=== PATIENT | female | born 1950 | race Caucasian/White ===

== ENCOUNTER → 2023-04-21 09:36 | Outpatient (REF) | payer MEDICARE, OTHER, SELFPAY ==
[2023-04-21 10:52] LABS: Albumin 3.7 g/dl (3.5-5.0); Blood Urea Nitrogen 22 mg/dl (7-17); Calcium 9.3 mg/dl (8.4-10.2); Carbon Dioxide 31 mmol/L (22-30); Chloride 84 mmol/L (98-107); Glucose 145 mg/dl (70-99); Phosphorus 4.5 mg/dl (2.5-4.5); Sodium 126 mmol/L (135-145); eGFR 43.42
== END ==
LOC: REG 09:36
PROVIDERS: ATTENDING PHYSICIAN Internal Medicine
DX: R80.9 Proteinuria, unspecified (principal); I10 Essential (primary) hypertension; E87.1 Hypo-osmolality and hyponatremia
CPT/HCPCS: 36415; 80069

== ENCOUNTER → 2023-04-28 16:41 | Outpatient (REF) | payer MEDICARE, OTHER, SELFPAY ==
[2023-04-28 17:14] LABS: Urine Albumin Trace (Neg - Trace); Urine Bilirubin Negative (Negative); Urine Character Clear (Clear); Urine Color Yellow; Urine Glucose Negative (Negative); Urine Ketone Negative (Negative); Urine Leukocyte Negative (Negative); Urine Nitrite Negative (Negative); Urine Occult Blood 1+ (Negative); Urine Urobilinogen Negative (Neg - 1+)
[2023-04-28 17:28] LABS: Urine Squamous Cell 0-2 /LPF (Few)
[2023-04-28 17:29] LABS: Urine Bacteria Few (Negative); Urine White Cell 0-2 /HPF (0-5)
== END ==
LOC: REG 16:41
PROVIDERS: ATTENDING PHYSICIAN Specialist
DX: R31.21 Asymptomatic microscopic hematuria (principal)
CPT/HCPCS: 81003; 81015

== ENCOUNTER → 2023-05-26 08:04 | Outpatient (REF) | payer MEDICARE, OTHER, SELFPAY ==
[2023-05-26 09:15] LABS: % Basophils 1.8 % (0-2); % Eosinophils 3.5 % (0-6); % Immature Granulocytes 0.9 % (0-0.5); % Monocytes 12.9 % (1.7-9.3); % Neutrophils 61.9 % (42.2-75.2); Absolute Basophils 0.1 10^3/uL (0-0.2); Absolute Eosinophils 0.2 10^3/uL (0-0.7); Absolute Immature Granulocytes 0.1 10^3/uL (0-0.05); Absolute Lymphocytes 1.1 10^3/uL (1.2-3.4); Absolute Monocytes 0.7 10^3/uL (0.1-0.6); Absolute Neutrophils 3.5 10^3/uL (1.4-6.5); Hematocrit 35.3 % (37.0-47.0); Hemoglobin 12.2 g/dL (12.0-16.0); Mean Corp Hgb Conc. 34.6 g/dL (33.0-37.0); Mean Corpuscular Hgb 32.6 pg (27.0-31.0); Mean Corpuscular Volume 94.4 fL (81.0-99.0); Nucleated Red Blood Cells % 0 %; Platelet Count 352 10^3/uL (130-400); Red Blood Cell Count 3.74 10^6/uL (4.20-5.40); Red Cell Dist. Width 12.1 % (11.5-14.5); White Blood Cell Count 5.6 10^3/uL (4.8-10.8)
[2023-05-26 09:46] LABS: ALT (SGPT) 21 U/L (0-35); AST (SGOT) 34 U/L (14-36); Albumin 3.9 g/dl (3.5-5.0); Alkaline Phosphatase 71 U/L (38-126); Blood Urea Nitrogen 12 mg/dl (7-17); Calcium 9.7 mg/dl (8.4-10.2); Carbon Dioxide 31 mmol/L (22-30); Chloride 91 mmol/L (98-107); Glucose 94 mg/dl (70-99); Potassium 4.1 mmol/L (3.5-5.1); Sodium 131 mmol/L (135-145); Total Bilirubin 0.9 mg/dl (0.2-1.3); Total Cholesterol 227 mg/dl (50-199); Total Protein 6.4 g/dl (6.3-8.2); Triglyceride 70 mg/dl (10-149); Very Low Density Lipoprotein 14 mg/dl (0-30); eGFR 53.06
[2023-05-26 09:54] LABS: HDL Cholesterol 135 mg/dl; LDL Cholesterol, Calculated 78 mg/dl
[2023-05-26 10:05] LABS: Free T4 1.52 ng/dl (0.78-2.19)
[2023-05-26 10:19] LABS: TSH 5.53 uIU/ml (0.47-4.68)
[2023-05-26 10:56] LABS: Folate > 20.0 ng/ml (2.76-20); Vitamin B12 799 pg/ml (239-931)
[2023-05-26 11:19] LABS: Glycohemoglobin (HgbA1c) 5.2 % (4.0-5.6)
[2023-05-29 17:08] LABS: Vitamin B1, Plasma 8 nmol/L (4-15)
== END ==
LOC: REG 08:04
PROVIDERS: ATTENDING PHYSICIAN Family Medicine
DX: I10 Essential (primary) hypertension (principal); E87.1 Hypo-osmolality and hyponatremia; R79.89 Other specified abnormal findings of blood chemistry; R35.0 Frequency of micturition; R63.1 Polydipsia; E53.8 Deficiency of other specified B group vitamins; D75.89 Other specified diseases of blood and blood-forming organs; F10.10 Alcohol abuse, uncomplicated
CPT/HCPCS: 36415; 80053; 80061; 82607; 82746; 83036; 84425; 84439; 84443; 85025

== ENCOUNTER → 2023-06-21 14:45 | Outpatient (REF) | payer MEDICARE, OTHER, SELFPAY | LOC: WDC 14:45 | PROVIDERS: ATTENDING PHYSICIAN Family Medicine | DX: Z12.31 Encounter for screening mammogram for malignant neoplasm of breast (principal) | CPT/HCPCS: 77063; 77067 ==

== ENCOUNTER → 2023-07-27 15:34 | Outpatient (REF) | payer MEDICARE, OTHER, SELFPAY ==
[2023-07-27 17:03] LABS: Blood Urea Nitrogen 14 mg/dl (7-17); Calcium 9.5 mg/dl (8.4-10.2); Carbon Dioxide 26 mmol/L (22-30); Chloride 95 mmol/L (98-107); Glucose 104 mg/dl (70-99); Potassium 4.3 mmol/L (3.5-5.1); Sodium 129 mmol/L (135-145); eGFR > 60.00
[2023-07-27 17:20] LABS: Free T3 2.92 pg/ml (2.77-5.27); Free T4 1.19 ng/dl (0.78-2.19)
[2023-07-27 17:34] LABS: TSH 5.24 uIU/ml (0.47-4.68)
== END ==
LOC: REG 15:34
PROVIDERS: ATTENDING PHYSICIAN Family Medicine
DX: I10 Essential (primary) hypertension (principal); E87.1 Hypo-osmolality and hyponatremia; R79.89 Other specified abnormal findings of blood chemistry
CPT/HCPCS: 36415; 80048; 84439; 84443; 84481

== ENCOUNTER → 2024-01-04 15:10 | Outpatient (REF) | payer MEDICARE, OTHER, SELFPAY ==
[2024-01-04 15:59] LABS: % Basophils 0.4 % (0-2); % Eosinophils 0.2 % (0-6); % Immature Granulocytes 0.5 % (0-0.5); % Lymphocytes 11.1 % (20.5-51.1); % Monocytes 4.6 % (1.7-9.3); % Neutrophils 83.2 % (42.2-75.2); Absolute Basophils 0.1 10^3/uL (0-0.2); Absolute Immature Granulocytes 0.1 10^3/uL (0-0.05); Absolute Lymphocytes 1.3 10^3/uL (1.2-3.4); Absolute Monocytes 0.5 10^3/uL (0.1-0.6); Absolute Neutrophils 9.8 10^3/uL (1.4-6.5); Hematocrit 34.8 % (37.0-47.0); Hemoglobin 11.9 g/dL (12.0-16.0); Mean Corp Hgb Conc. 34.2 g/dL (33.0-37.0); Mean Corpuscular Hgb 30.5 pg (27.0-31.0); Mean Corpuscular Volume 89.2 fL (81.0-99.0); Mean Platelet Volume 10.2 fL (7.4-10.4); Nucleated Red Blood Cells % 0 %; Platelet Count 463 10^3/uL (130-400); Red Cell Dist. Width 13.2 % (11.5-14.5); White Blood Cell Count 11.8 10^3/uL (4.8-10.8)
[2024-01-04 16:29] LABS: ALT (SGPT) 17 U/L (0-35); AST (SGOT) 21 U/L (14-36); Albumin 4.5 g/dl (3.5-5.0); Alkaline Phosphatase 67 U/L (38-126); Blood Urea Nitrogen 16 mg/dl (7-17); Calcium 9.6 mg/dl (8.4-10.2); Carbon Dioxide 31 mmol/L (22-30); Chloride 93 mmol/L (98-107); Glucose 112 mg/dl (70-99); Sodium 135 mmol/L (135-145); Total Bilirubin 0.5 mg/dl (0.2-1.3); Total Protein 6.9 g/dl (6.3-8.2); eGFR > 60.00
[2024-01-04 17:34] LABS: Folate > 20.0 ng/ml (2.76-20); Vitamin B12 725 pg/ml (239-931)
== END ==
LOC: REG 15:10
PROVIDERS: ATTENDING PHYSICIAN Nurse Practitioner Adult Health; FAMILY PHYSICIAN Family Medicine
DX: E87.1 Hypo-osmolality and hyponatremia (principal); E53.8 Deficiency of other specified B group vitamins; I10 Essential (primary) hypertension; E87.6 Hypokalemia; F10.10 Alcohol abuse, uncomplicated; Z51.81 Encounter for therapeutic drug level monitoring; Z79.899 Other long term (current) drug therapy; Z13.29 Encounter for screening for other suspected endocrine disorder
CPT/HCPCS: 36415; 80053; 82607; 82746; 84207; 85025

== ENCOUNTER → 2024-01-29 10:10 | Outpatient (REF) | payer MEDICARE, OTHER, SELFPAY ==
[2024-01-29 11:01] LABS: % Basophils 0.4 % (0-2); % Eosinophils 0.4 % (0-6); % Immature Granulocytes 0.4 % (0-0.5); % Lymphocytes 10.1 % (20.5-51.1); % Monocytes 7.4 % (1.7-9.3); % Neutrophils 81.3 % (42.2-75.2); Absolute Basophils 0.1 10^3/uL (0-0.2); Absolute Eosinophils 0.1 10^3/uL (0-0.7); Absolute Immature Granulocytes 0.1 10^3/uL (0-0.05); Absolute Lymphocytes 1.4 10^3/uL (1.2-3.4); Absolute Neutrophils 11.5 10^3/uL (1.4-6.5); Hemoglobin 12.3 g/dL (12.0-16.0); Mean Corp Hgb Conc. 33.2 g/dL (33.0-37.0); Mean Corpuscular Hgb 29.4 pg (27.0-31.0); Mean Corpuscular Volume 88.3 fL (81.0-99.0); Mean Platelet Volume 10.2 fL (7.4-10.4); Nucleated Red Blood Cells % 0 %; Platelet Count 324 10^3/uL (130-400); Red Blood Cell Count 4.19 10^6/uL (4.20-5.40); Red Cell Dist. Width 12.4 % (11.5-14.5); White Blood Cell Count 14.1 10^3/uL (4.8-10.8)
[2024-01-29 11:40] LABS: Blood Urea Nitrogen 15 mg/dl (7-17); Calcium 9.8 mg/dl (8.4-10.2); Carbon Dioxide 32 mmol/L (22-30); Chloride 93 mmol/L (98-107); Glucose 94 mg/dl (70-99); Potassium 3.4 mmol/L (3.5-5.1); Sodium 139 mmol/L (135-145); eGFR > 60.00
== END ==
LOC: REG 10:10
PROVIDERS: ATTENDING PHYSICIAN Nurse Practitioner Adult Health; FAMILY PHYSICIAN Family Medicine
DX: I10 Essential (primary) hypertension (principal); D72.9 Disorder of white blood cells, unspecified; D72.829 Elevated white blood cell count, unspecified
CPT/HCPCS: 36415; 80048; 85025

== ENCOUNTER → 2024-02-01 14:33 | Outpatient (REF) | payer MEDICARE, OTHER, SELFPAY | LOC: RAD 14:33 | PROVIDERS: ATTENDING PHYSICIAN Family Medicine | DX: D72.828 Other elevated white blood cell count (principal) | CPT/HCPCS: 71046 ==

== ENCOUNTER → 2024-02-05 11:11 | Outpatient (REF) | payer MEDICARE, OTHER, SELFPAY | LOC: REG 11:11 | PROVIDERS: ATTENDING PHYSICIAN Family Medicine | DX: D72.828 Other elevated white blood cell count (principal) | CPT/HCPCS: 87324; 87449; 89055 ==

== ENCOUNTER → 2024-02-12 10:25 | Outpatient (REF) | payer MEDICARE, OTHER, SELFPAY ==
[2024-02-12 12:00] LABS: % Basophils 0.7 % (0-2); % Eosinophils 0.6 % (0-6); % Immature Granulocytes 0.9 % (0-0.5); % Lymphocytes 16.6 % (20.5-51.1); % Monocytes 7.6 % (1.7-9.3); % Neutrophils 73.6 % (42.2-75.2); Absolute Basophils 0.1 10^3/uL (0-0.2); Absolute Eosinophils 0.1 10^3/uL (0-0.7); Absolute Immature Granulocytes 0.1 10^3/uL (0-0.05); Absolute Lymphocytes 1.9 10^3/uL (1.2-3.4); Absolute Monocytes 0.9 10^3/uL (0.1-0.6); Absolute Neutrophils 8.4 10^3/uL (1.4-6.5); Hematocrit 40.1 % (37.0-47.0); Hemoglobin 12.7 g/dL (12.0-16.0); Mean Corp Hgb Conc. 31.7 g/dL (33.0-37.0); Mean Corpuscular Hgb 29.3 pg (27.0-31.0); Mean Corpuscular Volume 92.6 fL (81.0-99.0); Mean Platelet Volume 9.7 fL (7.4-10.4); Nucleated Red Blood Cells % 0 %; Platelet Count 455 10^3/uL (130-400); Red Blood Cell Count 4.33 10^6/uL (4.20-5.40); Red Cell Dist. Width 12.6 % (11.5-14.5); White Blood Cell Count 11.5 10^3/uL (4.8-10.8)
[2024-02-12 12:29] LABS: ALT (SGPT) 19 U/L (0-35); AST (SGOT) 22 U/L (14-36); Albumin 4.5 g/dl (3.5-5.0); Alkaline Phosphatase 69 U/L (38-126); Blood Urea Nitrogen 15 mg/dl (7-17); C-Reactive Protein < 5.00 mg/L (0.0-10.00); Calcium 9.5 mg/dl (8.4-10.2); Carbon Dioxide 29 mmol/L (22-30); Chloride 95 mmol/L (98-107); Glucose 92 mg/dl (70-99); Potassium 4.5 mmol/L (3.5-5.1); Sodium 135 mmol/L (135-145); Total Bilirubin 0.5 mg/dl (0.2-1.3); eGFR > 60.00
[2024-02-12 12:47] LABS: Erythrocyte Sed Rate 11 mm/hour (0-20)
== END ==
LOC: REG 10:25
PROVIDERS: ATTENDING PHYSICIAN Family Medicine
DX: D72.828 Other elevated white blood cell count (principal)
CPT/HCPCS: 36415; 80053; 85025; 85652; 86140

== ENCOUNTER → 2024-02-21 11:28 | Outpatient (REF) | payer MEDICARE, OTHER, SELFPAY ==
[2024-02-21 13:01] LABS: % Basophils 0.9 % (0-2); % Eosinophils 1.3 % (0-6); % Immature Granulocytes 0.7 % (0-0.5); % Lymphocytes 19.2 % (20.5-51.1); % Monocytes 9.4 % (1.7-9.3); % Neutrophils 68.5 % (42.2-75.2); Absolute Basophils 0.1 10^3/uL (0-0.2); Absolute Eosinophils 0.1 10^3/uL (0-0.7); Absolute Immature Granulocytes 0.1 10^3/uL (0-0.05); Absolute Lymphocytes 1.6 10^3/uL (1.2-3.4); Absolute Monocytes 0.8 10^3/uL (0.1-0.6); Absolute Neutrophils 5.8 10^3/uL (1.4-6.5); Hematocrit 36.6 % (37.0-47.0); Hemoglobin 12.4 g/dL (12.0-16.0); Mean Corp Hgb Conc. 33.9 g/dL (33.0-37.0); Mean Corpuscular Hgb 30.2 pg (27.0-31.0); Mean Corpuscular Volume 89.1 fL (81.0-99.0); Nucleated Red Blood Cells % 0 %; Platelet Count 385 10^3/uL (130-400); Red Blood Cell Count 4.11 10^6/uL (4.20-5.40); Red Cell Dist. Width 12.9 % (11.5-14.5); White Blood Cell Count 8.5 10^3/uL (4.8-10.8)
== END ==
LOC: REG 11:28
PROVIDERS: ATTENDING PHYSICIAN Family Medicine
DX: D72.829 Elevated white blood cell count, unspecified (principal)
CPT/HCPCS: 36415; 85025

== ENCOUNTER → 2024-05-10 08:09 | Outpatient (REF) | payer MEDICARE, OTHER, SELFPAY ==
[2024-05-10 09:07] LABS: % Eosinophils 2.7 % (0-6); % Immature Granulocytes 0.8 % (0-0.5); % Lymphocytes 21.3 % (20.5-51.1); % Monocytes 7.1 % (1.7-9.3); % Neutrophils 67.1 % (42.2-75.2); Absolute Basophils 0.1 10^3/uL (0-0.2); Absolute Eosinophils 0.2 10^3/uL (0-0.7); Absolute Immature Granulocytes 0.1 10^3/uL (0-0.05); Absolute Lymphocytes 1.7 10^3/uL (1.2-3.4); Absolute Monocytes 0.6 10^3/uL (0.1-0.6); Absolute Neutrophils 5.3 10^3/uL (1.4-6.5); Hematocrit 37.9 % (37.0-47.0); Hemoglobin 12.3 g/dL (12.0-16.0); Mean Corp Hgb Conc. 32.5 g/dL (33.0-37.0); Mean Corpuscular Hgb 29.1 pg (27.0-31.0); Mean Corpuscular Volume 89.6 fL (81.0-99.0); Mean Platelet Volume 9.6 fL (7.4-10.4); Nucleated Red Blood Cells % 0 %; Platelet Count 380 10^3/uL (130-400); Red Blood Cell Count 4.23 10^6/uL (4.20-5.40); Red Cell Dist. Width 12.8 % (11.5-14.5); White Blood Cell Count 7.9 10^3/uL (4.8-10.8)
[2024-05-10 09:44] LABS: ALT (SGPT) 17 U/L (0-35); AST (SGOT) 21 U/L (14-36); Albumin 4.5 g/dl (3.5-5.0); Alkaline Phosphatase 63 U/L (38-126); Blood Urea Nitrogen 10 mg/dl (7-17); Calcium 9.3 mg/dl (8.4-10.2); Carbon Dioxide 31 mmol/L (22-30); Chloride 96 mmol/L (98-107); Glucose 98 mg/dl (70-99); Potassium 3.7 mmol/L (3.5-5.1); Sodium 135 mmol/L (135-145); Total Cholesterol 266 mg/dl (50-199); Total Protein 6.8 g/dl (6.3-8.2); Triglyceride 79 mg/dl (10-149); Very Low Density Lipoprotein 15 mg/dl (0-30); eGFR 59.12
[2024-05-10 09:54] LABS: HDL Cholesterol 119 mg/dl; LDL Cholesterol, Calculated 132 mg/dl
[2024-05-10 10:12] LABS: TSH Reflex To Free T4 4.83 uIU/ml (0.47-4.68)
[2024-05-10 10:31] LABS: Vitamin B12 501 pg/ml (239-931)
== END ==
LOC: REG 08:09
PROVIDERS: ATTENDING PHYSICIAN Family Medicine
DX: D72.828 Other elevated white blood cell count (principal); I10 Essential (primary) hypertension; E03.8 Other specified hypothyroidism; E53.1 Pyridoxine deficiency; E78.00 Pure hypercholesterolemia, unspecified
CPT/HCPCS: 36415; 80053; 80061; 82607; 84207; 84439; 84443; 85025

== ENCOUNTER 2024-06-09 20:06 | Inpatient (IN) | payer MEDICARE, OTHER, SELFPAY ==
[2024-06-09] VITALS (12 sets, daily range): BP systolic 111–181; BP diastolic 72–129; PULSE 90–100; BMI 21.0; BMI 22.4
[2024-06-09 15:57] LABS: % Basophils 0.8 % (0-2); % Eosinophils 0.6 % (0-6); % Immature Granulocytes 0.5 % (0-0.5); % Lymphocytes 12.5 % (20.5-51.1); % Monocytes 4.8 % (1.7-9.3); % Neutrophils 80.8 % (42.2-75.2); Absolute Basophils 0.1 10^3/uL (0-0.2); Absolute Eosinophils 0.1 10^3/uL (0-0.7); Absolute Immature Granulocytes 0.1 10^3/uL (0-0.05); Absolute Lymphocytes 1.6 10^3/uL (1.2-3.4); Absolute Monocytes 0.6 10^3/uL (0.1-0.6); Absolute Neutrophils 10.6 10^3/uL (1.4-6.5); Hematocrit 29.9 % (37.0-47.0); Hemoglobin 10.2 g/dL (12.0-16.0); Mean Corp Hgb Conc. 34.1 g/dL (33.0-37.0); Mean Corpuscular Hgb 29.7 pg (27.0-31.0); Mean Corpuscular Volume 87.2 fL (81.0-99.0); Mean Platelet Volume 9.5 fL (7.4-10.4); Nucleated Red Blood Cells % 0 %; Platelet Count 400 10^3/uL (130-400); Red Blood Cell Count 3.43 10^6/uL (4.20-5.40); Red Cell Dist. Width 12.8 % (11.5-14.5); White Blood Cell Count 13.1 10^3/uL (4.8-10.8)
[2024-06-09 16:08] LABS: ALT (SGPT) 18 U/L (0-35); AST (SGOT) 23 U/L (14-36); Albumin 4.1 g/dl (3.5-5.0); Alkaline Phosphatase 58 U/L (38-126); Blood Urea Nitrogen 29 mg/dl (7-17); Calcium 9.1 mg/dl (8.4-10.2); Carbon Dioxide 30 mmol/L (22-30); Chloride 92 mmol/L (98-107); Estimated Creatinine Clearance 33 ml/min; Glucose 114 mg/dl (70-99); Potassium 3.5 mmol/L (3.5-5.1); Sodium 130 mmol/L (135-145); Total Bilirubin 0.5 mg/dl (0.2-1.3); Total Protein 6.1 g/dl (6.3-8.2)
[2024-06-09 16:20] LABS: Troponin I < 0.012 ng/ml
--- NOTE | 2024-06-09 16:41 | ED.GENMED ---
History of Present Illness
General
Chief Complaint: Fainting Sensation
Source: patient and family
Exam Limitations: none
Time Seen by Provider: 06/09/24 16:12
Nursing documentation reviewed up to this point in time: agreed with
History of Present Illness
History of Present Illness:
Patient is a 73-year-old female presents to the ER for evaluation. Patient apparently had a witnessed near syncopal episode by her son. She was walking around her house at 2:30 PM looking for paperwork when she reports she did not feel right. She
called for her son her son saw her and caught her. She did not fully pass out. Son reports patient was still talking to her.
She had no associated chest pain prior to episode.
She does mention that she has had several nosebleeds off and on for the past month. She is not on blood thinners other than aspirin.
Review of Systems
Review of Systems
Allergies reviewed?: Yes
All Other Systems: ROS reviewed and negative except as documented in HPI and ROS
Constitutional: Reports no symptoms; Denies fever, fatigue or chills
EENT: Reports other (Intermittent nosebleeds off and on for the past several weeks (last one today ) )
Respiratory: Reports no symptoms; Denies trouble breathing
Cardiac: Reports other (near syncope )
ABD/GI: Reports no symptoms; Denies abdominal pain, vomiting, diarrhea or black stools
: Reports no symptoms
Musculoskeletal: Reports no symptoms
Skin: Reports no symptoms
Psychiatric: Reports no symptoms
Phy Exam
General Physical Exam
General Presentation: no apparent distress
General age: appears stated age
General Skin: warm and dry
General Habitus: normal
General Mental: alert
General Hydration: appears well hydrated
Cardiovascular Exam
Cardiovascular Exam: regular rate/rhythm, no murmur and normal peripheral pulses
Pulmonary Exam
Pulmonary Exam: lungs clear and no respiratory distress
Neurological Exam
Neurological Exam: alert and oriented x3
Musculoskeletal Exam
Musculoskeletal Exam: full ROM
Skin Exam
Skin Exam: normal color and warm/dry
Psychiatric Exam
Psychiatric Exam: normal mood/affect
Course
Orders/Labs/Results
Orders:
Orders
06/09/24 Dinner
Regular
At Your Request: Limited, Clinical Registered Nurse Required
06/09/24 15:18
EKG [Electrocardiogram (*1)] Urgent
Reason for Study: Syncope
EKG- Treatment ONCE
06/09/24 15:34
Alcohol Urgent
Complete Blood Count/With Diff Urgent
Comprehensive Metabolic Panel Urgent
Ferritin Urgent
Comment: PRUDENCEON
Folate Urgent
Comment: PRUDENCEON
Free T4 Urgent
Iron Urgent
Comment: PRUDENCEON
Serum Osmolality Urgent
Comment: PRUDENCEON
TSH Reflex To Free T4 Urgent
Comment: ADDON
Total Iron Binding Urgent
Comment: ADDON
Troponin I Urgent
Vitamin B12 Urgent
Comment: PRUDENCEON
06/09/24 16:53
Orthostatic VS- Treatment ONCE
06/09/24 17:04
Osmolality, Random Urine Urgent
Date Specimen was Collected: 06/09/24
Time Specimen was Collected: 17:01
Comment: PRUDENCEON
UA Reflex to Culture [Urinalysis Reflex To Culture] Urgent
Date Specimen was Collected: 06/09/24
Time Specimen was Collected: 17:01
Urine Microscopic Reflex Cult Urgent
Urine Sodium Urgent
Date Specimen was Collected: 06/09/24
Time Specimen was Collected: 17:01
Comment: PRUDENCEON
06/09/24 17:57
Add On- LAB Urgent
Tests Added?: alcohol
06/09/24 17:58
0.9% Sodium Chloride 1000 ml [Nss] 1,000 ml IV BOLUS
06/09/24 18:32
Add On- LAB Urgent
Tests Added?: iron, ferritin, tibc, folate, b12, urine na, urine osmo, serum os
06/09/24 18:33
Add On- LAB Urgent
Tests Added?: tsh wiraulh freee t4 reflex
06/09/24 19:04
Labetalol HCl [Trandate] 10 mg IV NOW STA
Labetalol HCl [Trandate] 10 mg IV Q6HPRN PRN
06/09/24 19:09
CT Head W/o Iv Contrast Urgent
Comment:
Reason For Exam: h/a htn urgency nose bleed
06/09/24 19:25
Admit/Transfer Patient As Directed
Co-Sign Provider:
Level of Care: Inpatient admission
Assign to:: Telemetry
Physician / Group: keren carbone
Diagnosis: htn urgency, r nares epistaxis, donald/ckd3b, anemia
Reason for Telemetry: Arrhythmia
Date to Stop Telemetry: 06/12/24
Time to Stop Telemetry: 11:00
Reason for Hospitalization: htn urgency, r nares epistaxis, donald/ckd3b, anemia
Expected length of stay greater than two midnights?: Yes
ELOS- Estimated Length of Stay in days: 3
I certify the patient meets the requirements for IP care: Yes
06/09/24 19:26
Code Status As Directed
Resuscitation Status: Do not resuscitate
Reached after discussion with pt or family/Healthcare POA: Yes
Based on pt advanced directive or healthcare POA form: Yes
DNR Bracelet Application ONCE
06/09/24 19:30
PRN Pain Medication Management As Directed
May give lesser potent ordered pain med per pt: Yes
preference::
Protocol:: Medication orders for pain may be administered in a
manner that supports deferring to patient preference
when the pt is:
- Requesting an ordered lesser potent pain medication.
Least to most potent pain medications are defined
as: acetaminophen < NSAID < tramadol < opioids
(morphine, oxycodone, hydromorphone).
- Requesting a lesser dose of the same medication IF
ORDERED.
- Requesting a less intrusive route of administration
if both routes are prescribed by the provider (PO <
IV).
06/09/24 19:55
Acetaminophen [Tylenol] 650 mg PO NOW STA
06/09/24 21:49
Activity As Directed
Activity Level: With Assistance
Orthostatic Vital Signs As Directed
Orthostatic VS Frequency: Daily
Pneumatic Compression Sleeves As Directed
Type: Knee high
Precautions As Directed
Type of Precautions: Other
Comment: fall
Vital Signs As Directed
Frequency: Per unit guidelines
Ot Eval And Treat Routine
Pt Eval And Treat Routine
Activity Level: With Assistance
DX Deep Vein Thrombosis Video Routine
06/09/24 22:00
Amlodipine [Norvasc] 10 mg PO ONCE ONE
06/10/24 00:00
Acetaminophen [Tylenol] 650 mg PO Q4HPRN PRN
06/10/24 06:00
Complete Blood Count/With Diff IN AM
Comprehensive Metabolic Panel IN AM
06/10/24 08:00
Amlodipine [Norvasc] 10 mg PO DAILY
06/11/24 06:00
Complete Blood Count/With Diff IN AM
Comprehensive Metabolic Panel IN AM
06/12/24 11:00
DC Protocol for Telemetry ONCE
Abnormal Lab Results
06/09/24 06/09/24
15:34 17:04
WBC 13.1 H 10^3/uL
(4.8-10.8)
RBC 3.43 L 10^6/uL
(4.20-5.40)
Hgb 10.2 L g/dL
(12.0-16.0)
Hct 29.9 L %
(37.0-47.0)
Abs Immat Gran (auto) 0.1 H 10^3/uL
(0-0.05)
Absolute Neuts (auto) 10.6 H 10^3/uL
(1.4-6.5)
Neutrophils % 80.8 H %
(42.2-75.2)
Lymphocytes % 12.5 L %
(20.5-51.1)
Sodium 130 L mmol/L
(135-145)
Chloride 92 L mmol/L
(98-107)
BUN 29 H mg/dl
(7-17)
Creatinine 1.2 H mg/dL
(0.6-1.0)
Glucose 114 H mg/dl
(70-99)
TIBC 244 L ug/dl
(265-497)
Total Protein 6.1 L g/dl
(6.3-8.2)
TSH (Reflex) 5.71 H uIU/ml
(0.47-4.68)
Urine Ketones 1+ A
(Negative)
Ur Occult Blood Reflex 2+ A
(Negative)
Urine RBC 7-10 A /HPF
(0-2)
Urine Bacteria (Reflex) Few A
(Negative)
Urine Albumin (Reflex) 1+ A
(Neg - Trace)
06/09/24 15:34
06/09/24 15:34
Vital Signs
Initial and Last Documented VS:
Initial Vital Signs
Temp Pulse Resp BP Pulse Ox
97.5 F 100 18 131/93 98
06/09/24 15:20 06/09/24 15:20 06/09/24 15:20 06/09/24 15:20 06/09/24 15:20
Last Documented Vital Signs
Temp Pulse Resp BP Pulse Ox
97.6 F 85 18 124/72 98
06/09/24 23:00 06/09/24 23:00 06/09/24 23:00 06/09/24 23:00 06/09/24 23:00
MDM/Problems Addressed
Differential Diagnosis Includes:
not Limited to near syncope dehydration electrolyte abnormality
MDM/Problems Addressed:
Patient is a 73-year-old female who was walking and describes a near syncopal episode. She suddenly did not feel well and son caught her. She did not then fall the ground he does report she was talking but was out of it. She denies any chest pain
she did not feel like she was in a pass out but she did not feel well. She has intermittent nosebleeds for the past several weeks. She has not been seen by ENT. She denies any recent fever chills illness. Her white count is very minimally
elevated her hemoglobin is 10.2 it was 12.3 May 10. She denies any black or dark stools but has had nosebleeds with a be attributing to this anemia.
Her sodium is mildly low at 130. Her kidney function is minimally elevated.
Will give fluids. No acute findings on EKG negative cardiac troponin. Case discussed with Dr. Colón with patient's age and sudden episodes of near syncope would recommend monitoring.
Son reports patient is a former alcoholic she reports she has not had a drink since January alcohol was added onto labs.
Patient was admitted by the admitting hospitalist team CAT scan was ordered and negative
*Radiology
Radiology exam reviewed: radiology read reviewed
*Pulse Oximetry
Patient hypoxic: no
*EKG
Interpretation: normal
Heart Rate: 91
Rate: normal
Rhythm: sinus
QRS Pattern: normal QRS
*Critical Care Note
Total Time (30-74mins, 75-104mins- exclusive of procedures): Not Applicable
ED Attending Note
-
Portions of this chart may have been created with voice recognition software.� Occasional wrong word or��sound alike� substitutions may have occurred due to the inherent limitations of voice recognition software.
Discharge Plan
Departure
Patient Disposition: Admit
Date of Disposition: 06/09/24
Time of Disposition: 18:10
Admit to: Telemetry
Admit to doctor: hospitalist
Presentation/result/management discussed w/ accepting MD/DO: Hospitalist
Patient with high blood pressure during this ER visit?: Yes
Condition: Fair
Covid-19: Not Applicable
Discharge Problem:
Near syncope, Acute hyponatremia, Acute dehydration
Interventions
Interventions:
*Risk Screen - Suicide Last Done: 06/09/24 15:57
*General Assessment Last Done: 06/09/24 15:57
*Neglect/Abuse Screening Last Done: 06/09/24 15:57
*ED- Fall Risk Assessment Last Done: 06/09/24 15:57
*ED COVID-19 Vaccine History Last Done: 06/09/24 15:57
*Nursing Disposition Last Done: 06/09/24 21:30
ED- Cardiac Assessment Last Done: 06/09/24 15:57
ED- Neurological Assessment Last Done: 06/09/24 15:57
Discharge Date and Time
Discharge Date/Time: 06/09/24 21:30
[2024-06-09 17:12] LABS: Urine Albumin 1+ (Neg - Trace); Urine Bilirubin Negative (Negative); Urine Character Clear (Clear); Urine Color Yellow; Urine Glucose Negative (Negative); Urine Ketone 1+ (Negative); Urine Leukocyte Negative (Negative); Urine Nitrite Negative (Negative); Urine Occult Blood 2+ (Negative); Urine Urobilinogen Negative (Neg - 1+)
[2024-06-09 17:28] LABS: Urine Bacteria Few (Negative); Urine White Cell 0-2 /HPF (0-5)
[2024-06-09] MEDS: NSS 1000 IV (18:07)
--- NOTE | 2024-06-09 18:24 | HPS.HSE ---
Family Physician
-
Family Physician: Oksana Kilgore MD
Chief Complaint
-
Right Neer's epistaxis, incomplete vasovagal episode secondary to epistaxis, frontal headache
History of Present Illness
73-year-old female with witnessed near syncopal episode by her son. The patient tells me she has been having nosebleeds over the past month and has had 7 over the past 2 weeks she was taking her finger and pressing on her nostril only tipping her
head back and then would start gagging on the blood. She would keep holding pressure on her nostril only till it eventually stopped. Today she states she was bleeding out of the right nares and was holding pressure tipping her head back started to
gag and felt like she was going to pass out when her son was there to catch her. She states she saw her PCP 1 month ago and had mention she only had 2 nosebleeds at that time. It was noted her blood pressure was elevated in the office and her
lisinopril was increased from 20 mg to 30 mg daily. The patient has short-term memory impairment likely secondary to prior alcohol abuse and family history of Alzheimer's. She does state she misses some medications even though they are put in
medication containers for a.m. and p.m. She is on aspirin 81 mg daily and has still been taking it despite having nosebleeds. She also complains of a frontal headache. She has a clot present in her right nares. She was counseled on how to pinch
her nose during a nosebleed with her son Jeancarlos present at bedside. It was also recommended that a family member organize her home medications she was advised also to hold aspirin during nosebleed episodes and to follow-up outpatient with ENT
She denies any prior chest pain or palpitations. She denies fever, chills, headache, chest pain, palpitations, cough, shortness of breath, abdominal pain, nausea, vomiting, diarrhea, urinary symptoms she does report several nosebleeds on and off
the past month she has past medical history of hypertension Dx February 2024, prior alcohol abuse 15 to 20 years 1 bottle of wine daily completed detox December 2023, memory impairment likely secondary to alcohol abuse/history of Alzheimer's
hyponatremia, CAD with cardiac stents 1997, wrist fracture repair 2004, CKD 3B, osteoporosis
Medical History
Past Medical History
Past Medical History: Reports Other
Additional Past Medical History:
CAD status post stent placement 1997
hypertension Dx February 2024
prior alcohol abuse 15 to 20 years 1 bottle of wine daily completed detox December 2023
memory impairment likely secondary to alcohol abuse/history of Alzheimer's
hyponatremia
CAD with cardiac stents 1997
wrist fracture repair 2004
CKD 3B
osteoporosis
Past Surgical History: Reports Other
Additional Past Surgical History:
Fractured wrist repair 2004
Cardiac cath with stents 1997
Tonsillectomy
Social History
Tobacco: Non-smoker
Alcohol: Former (1 bottle of white wine 15 to 20 years stopped January 2024)
Drug: None
Personal: Single
Living: Alone
Employment: Retired
Family History
Family History: Other (Mother history of Alzheimer's Father history alcohol abuse, COPD)
Allergies / Home Medications
Allergies reflects when Allergies were last updated in [facility].
Home Medications with original date entered in [facility]
Allergy/Medication List:
Allergies
Allergy/AdvReac Type Severity Reaction Status Date / Time
NKA - No Known Allergies Allergy Uncoded 07/13/07 09:18
Home Medications
alendronate 70 mg tablet 70 mg PO WE 06/09/24
aspirin 81 mg tablet,delayed release 81 mg PO DAILY 06/09/24
cholecalciferol (vitamin D3) 125 mcg (5,000 unit) tablet 125 mcg PO DAILY 06/09/24
cyanocobalamin (vitamin B-12) 100 mcg tablet 100 mcg PO DAILY 06/09/24
ezetimibe 10 mg tablet 10 mg PO HS 06/09/24
folic acid 1 mg tablet 1 mg PO DAILY 06/09/24
lisinopril 30 mg tablet 30 mg PO DAILY 06/09/24
loperamide 2 mg tablet 4 mg PO DAILYPRN PRN diarrhea 06/09/24
melatonin 3 mg tablet 6 mg PO HS 06/09/24
potassium chloride 10 mEq tablet,extended release 10 meq PO DAILY 06/09/24
thiamine HCl (vitamin B1) 100 mg tablet 100 mg PO DAILY 06/09/24
trazodone 50 mg tablet 75 mg PO HS 06/09/24
Review of Systems
-
History Source: Patient and Family (Son Jeancarlos at bedside)
A 12 point ROS was completed and negative except as noted: Yes
Constitutional: Denies Fever, Fatigue or Chills
EENT: Reports Other (Right nares epistaxis controlled); Denies Sore Throat
Respiratory: Denies Cough, Hemoptysis or Trouble Breathing
Cardiac: Denies Chest Pain, Diaphoresis, Palpitations or Syncope
Abdomen/GI: Denies Abdominal Pain, Nausea, Vomiting, Diarrhea, Constipated, Bloody Stools or Black Stools
: Denies Dysuria, Frequency, Flank Pain, Incontinence, Difficulty Voiding, Urgency or Bleeding
Musculoskeletal: Denies Joint Pain or Edema
Skin: Denies Itching or Rash
Neurological: Reports Dizzy (When having nosebleed started to feel dizzy and fall backwards but son caught her) and Headache (Frontal headache)
Endocrine: Reports No Symptoms
Hematologic/Lymphatic: Reports No Symptoms
Psych: Reports Calm
Physical Exam
Vital Signs
Vital Signs
Temp Pulse Resp BP Pulse Ox
97.5 F 97 19 153/129 92
06/09/24 15:20 06/09/24 18:03 06/09/24 18:03 06/09/24 18:03 06/09/24 18:03
Physical Exam
General: Comfortable and Conversant; No Pain, Fever or Chills
HEENT: NormoCephalic, Anicteric, Moist mucous membranes, PERRLA, Hilger Conjunctivae, No Ptosis and Other (Blood clot present right anterior nares no bleeding left side of nose)
Respiratory: Clear; No Wheezes, Rales or Rhonchi
Cardiac: S1/S2 and Regular Rhythm; No Murmur, Rub, Gallop or Peripheral Edema
Breast: Deferred by me
GI: Soft, Non Tender, Non Distended, Normal Bowel Sounds and No Hepatosplenomegaly
Genito-urinary: Deferred by me
Musculoskeletal: No Clubbing, No Cyanosis and No Edema
Skin: Warm and Dry; No Rash
Neuro: AO x 3 (But is forgetful short-term memory cannot recall some of history is starting to miss some of her medication she states), Nonfocal/grossly intact, Cranial Nerves Intact and No Sensory Deficits; No Slurred Speech, Facial Droop, Tremors
or Sedated
Psych: Calm
Laboratory Results
-
06/09/24 15:34
06/09/24 15:34
Laboratory Results
Total Bilirubin 0.5 mg/dl (0.2-1.3) 06/09/24 15:34
AST 23 U/L (14-36) 06/09/24 15:34
ALT 18 U/L (0-35) 06/09/24 15:34
Alkaline Phosphatase 58 U/L (38-126) 06/09/24 15:34
Troponin I < 0.012 ng/ml 06/09/24 15:34
Data Reviewed
-
Lab Data: Labs Reviewed by me
Impression/Plan
-
Impression/plan:
Admit to telemetry
#Hypertensive urgency
Headache, prior nosebleed today
BP 181/117
IV labetalol 10 mg now then IV labetalol 10 mg every 6 hours as needed SBP> 165 GIPSON>110
-Check CT head
-Will STOP lisinopril 30 mg due to mild JORGE
-Will START Norvasc 10 mg daily
#Right nares epistaxis likely due to hypertensive urgency
Ongoing x 1 month, 7 episodes past 2 weeks
Clotted blood right naris
-Hold aspirin 81 mg daily
-Patient counseled on how to pinch nose and not tip head back son was present during counseling
-Follow-up outpatient with ENT
#Anemia normocytic secondary to R Nares epistaxis
History of 1 month of epistaxis, 7 episodes in the past 2 weeks including today
Hgb 10.2 was 12.3 on 05/10/2024 2 g drop in 1 month
MCV 87.2
-Check iron panel, B12, folate
-Hold aspirin
-Continue folic acid and B12 supplement
# incomplete Vasovagal espisode due to epistaxis
-Patient went to fell but was caught by son and did not pass out
-Check orthostatic level in a.m.
-Check alcohol level, troponin<0.012
EKG: NSR 91 bpm, QTc [address] or T wave abnormality
#Acute leukocytosis of unclear etiology
-UA unremarkable
-No obvious source of infection
#JORGE on CKD 3B
Creat 1.2 baseline appears 0.9
-IV NSS 1 L given in ER
-Will continue IV NSS 60 cc/h x 1 additional liter
#Hyponatremia�mild with history of
NA 130
-Check TSH with free T4 reflex, urine NA, urine osmole, serum Osmo
#Memory impairment short-term likely due to prior alcohol abuse and family history Alzheimer's
Patient is oriented to name, place, son, president but not recent history or some of medical history
Patient is forgetting to take some of medication at home
Son Jeancarlos made aware family should take over sorting out medications and bottles for patient's
#History of alcohol abuse
Prior 1 bottle of white wine daily 15 to 20 years detoxed at [facility] in October then short inpatient physical rehab stay due to hyponatremia then [facility] for 30 days for alcohol abuse quit January 2024
-Per son did have 1 episode of drinking again in January 2024
-Will check alcohol level as patient lives alone
-Continue vitamin B12 100 mcg p.o. daily, folic acid 1 mg daily, thiamine 100 mg p.o. daily
#CAD s/p cardiac stents 1997
-Stop aspirin 81 mg daily, continue Zetia 10 mg at bedtime
#Insomnia
-Continue melatonin 6 mg at bedtime
Advised patient to stop trazodone 75 mg at bedtime as she has not been taking it due to running out
#Osteoporosis
Continue alendronate 70 mg p.o. Wednesdays, vitamin D3
DVT prophylaxis
SCDs
DNR per patient with son Jeancarlos at bedside
[2024-06-09 18:44] LABS: Osmolality Urine 357 mOsm/kg (300-900)
[2024-06-09 18:56] LABS: Iron 107 ug/dl (37-170)
[2024-06-09 18:58] LABS: Urine Sodium 33 mmol/L (30-90)
[2024-06-09 19:05] LABS: Percent Saturation 43 % (20-50); Total Iron Binding Capacity 244 ug/dl (265-497)
[2024-06-09 19:17] LABS: Osmolality Serum 283 mOsm/kg (275-300)
--- NOTE | 2024-06-09 19:32 | W.PN.UPDATE ---
Update Note
Progress Note Update
This is an addendum to the H&P written by Rossana Ferreira on 06/09/2024. Patient seen and examined independently with DATA ANALYSIS INTERN.
73-year-old past medical history of former alcohol use disorder, hyponatremia, hypertension, CKD 3B, Alzheimer's, history of CAD status post 10, presenting with right nostril nasal bleeding ongoing intermittently for the past month. Almost passed
out today due to inappropriate management of epistaxis.
Blood pressure 180s currently. Has a dried clot in the right nostril.
Labs show leukocytosis. Hemoglobin of 10.2. Labs show creatinine of 1.2. Sodium of 130.
Patient with hypertensive urgency secondary to epistaxis. Appears to have had a vasovagal episode today.
Epistaxis has resolved. Hold aspirin.
IV fluids were given, does not need further. IV labetalol for elevated blood pressure. Due to slight JORGE and inadequate blood pressure control, will switch lisinopril to amlodipine 10 mg. As needed labetalol.
[2024-06-09] MEDS: TRANDATE 10 MG IV (19:35)
[2024-06-09 19:37] LABS: TSH Reflex To Free T4 5.71 uIU/ml (0.47-4.68)
[2024-06-09 19:41] LABS: Ferritin 51.7 ng/ml (11.1-264.0)
[2024-06-09 20:04] LABS: Free T4 1.62 ng/dl (0.78-2.19)
[2024-06-09 20:12] LABS: Folate 16.5 ng/ml (2.76-20); Vitamin B12 510 pg/ml (239-931)
[2024-06-09] MEDS: TYLENOL 650 MG PO (20:42)
[2024-06-09] MEDS: NORVASC 10 MG PO (22:39)
[2024-06-09] MEDS: MELATONIN 5 MG PO (23:31)
[2024-06-10] VITALS (7 sets, daily range): BP systolic 110–162; BP diastolic 69–98; PULSE 86–94; O2SAT 99
[2024-06-10 06:37] LABS: % Immature Granulocytes 0.7 % (0-0.5); % Lymphocytes 29.9 % (20.5-51.1); % Monocytes 8.2 % (1.7-9.3); % Neutrophils 57.2 % (42.2-75.2); Absolute Basophils 0.1 10^3/uL (0-0.2); Absolute Eosinophils 0.2 10^3/uL (0-0.7); Absolute Immature Granulocytes 0.1 10^3/uL (0-0.05); Absolute Lymphocytes 2.1 10^3/uL (1.2-3.4); Absolute Monocytes 0.6 10^3/uL (0.1-0.6); Absolute Neutrophils 4.1 10^3/uL (1.4-6.5); Hematocrit 25.5 % (37.0-47.0); Hemoglobin 8.7 g/dL (12.0-16.0); Mean Corp Hgb Conc. 34.1 g/dL (33.0-37.0); Mean Corpuscular Hgb 29.7 pg (27.0-31.0); Mean Platelet Volume 9.8 fL (7.4-10.4); Nucleated Red Blood Cells % 0 %; Platelet Count 320 10^3/uL (130-400); Red Blood Cell Count 2.93 10^6/uL (4.20-5.40); Red Cell Dist. Width 12.9 % (11.5-14.5); White Blood Cell Count 7.1 10^3/uL (4.8-10.8)
[2024-06-10 07:19] LABS: ALT (SGPT) 14 U/L (0-35); AST (SGOT) 19 U/L (14-36); Alkaline Phosphatase 54 U/L (38-126); Blood Urea Nitrogen 21 mg/dl (7-17); Calcium 8.3 mg/dl (8.4-10.2); Carbon Dioxide 25 mmol/L (22-30); Chloride 102 mmol/L (98-107); Estimated Creatinine Clearance 43 ml/min; Glucose 100 mg/dl (70-99); Potassium 3.1 mmol/L (3.5-5.1); Sodium 134 mmol/L (135-145); Total Bilirubin 0.4 mg/dl (0.2-1.3); Total Protein 5.1 g/dl (6.3-8.2); eGFR > 60.00
[2024-06-10] MEDS: NORVASC 10 MG PO (09:13)
[2024-06-10] MEDS: KCL 40 MEQ PO (09:13)
--- NOTE | 2024-06-10 11:56 | W.PN.HOSP.TC ---
Today's Communication/Plan
-
trend bp
trend hgb
PT eval
Assessment / Plan
Assessment / Plan
#Hypertensive urgency
#Headache, prior nosebleed today
-CT head No evidence of acute intracranial abnormality.
-On Norvasc. BP improved
#Right nares epistaxis likely due to hypertensive urgency
Ongoing x 1 month, 7 episodes past 2 weeks
Clotted blood right naris
-Hold aspirin 81 mg daily-restart in am
-Patient counseled on how to pinch nose and not tip head back son was present during counseling
-Follow-up outpatient with ENT
#Anemia normocytic secondary to R Nares epistaxis
History of 1 month of epistaxis, 7 episodes in the past 2 weeks including today
Trend cbc
MCV 87.2
-Hold aspirin
-Continue folic acid and B12 supplement
# incomplete Vasovagal espisode due to epistaxis
-Patient went to fell but was caught by son and did not pass out
-Check orthostatic level-negative.
-Check alcohol level, troponin<0.012
#Acute leukocytosis of unclear etiology
-UA unremarkable
-No obvious source of infection
-resolved
#JORGE on CKD 3B
Creat 1.2 baseline appears 0.9
-IV NSS 1 L given in ER
-resolved. stop IVF.
#Hyponatremia likely 2/2 hypovolemia
-resolved
#Memory impairment short-term likely due to prior alcohol abuse and family history Alzheimer's
Patient is oriented to name, place, son, president but not recent history or some of medical history
Patient is forgetting to take some of medication at home
Son Jeancarlos made aware family should take over sorting out medications and bottles for patient's
#History of alcohol abuse
Prior 1 bottle of white wine daily 15 to 20 years detoxed at [facility] in October then short inpatient physical rehab stay due to hyponatremia then [facility] for 30 days for alcohol abuse quit January 2024
-Per son did have 1 episode of drinking again in January 2024
-Will check alcohol level as patient lives alone
-Continue vitamin B12 100 mcg p.o. daily, folic acid 1 mg daily, thiamine 100 mg p.o. daily
#CAD s/p cardiac stents 1997
-Stop aspirin 81 mg daily, continue Zetia 10 mg at bedtime
#Insomnia
-Continue melatonin 6 mg at bedtime
Advised patient to stop trazodone 75 mg at bedtime as she has not been taking it due to running out
#Osteoporosis
Continue alendronate 70 mg p.o. Wednesdays, vitamin D3
#Subclinical hypothyrodism
-repeat TFTs in 4-6 weeks
DVT prophylaxis
SCDs in setting of recent epistaxis
DNR per patient with son Jeancarlos at bedside
Anticipated Discharge: Within 24 hours
Subjective/Interval History
-
Date of Service: June 10, 2024
no further epistaxis
denies feeling lightheaded
eating breakfast
Objective Data
-
Labs:
Laboratory Results
06/10/24
05:06
WBC 7.1
Hgb 8.7 L
Hct 25.5 L
Plt Count 320
Sodium 134 L
Potassium 3.1 L
Chloride 102
Carbon Dioxide 25
BUN 21 H
Creatinine 0.9
Glucose 100 H
Calcium 8.3 L
Total Bilirubin 0.4
AST 19
ALT 14
Alkaline Phosphatase 54
Vital Signs:
Vital Signs
Temp Pulse Resp BP Pulse Ox
97.8 F 91 16 126/69 99
06/10/24 11:40 06/10/24 11:40 06/10/24 11:40 06/10/24 11:40 06/10/24 11:40
I&O
06/09/24 06/10/24 06/11/24
06:59 06:59 06:59
Intake Total 1200 / 1200
Balance 1200 / 1200
Physical Exam
-
General: Well Developed and No Apparent Distress
HEENT: Normocephalic, Atraumatic and Moist Mucous Membranes
Respiratory: Clear to Auscultation
Cardiac: Regular Rhythm and S1/S2; Negative Murmur, Rub or Gallop
GI: Soft, Nontender, Nondistended and Normal Bowel Sounds; Negative Organomegaly
Rectal: Deferred by Provider
Musculoskeletal: No Clubbing, No Cyanosis and No Edema
Skin: Negative Rash
Neuro: Awake, No Motor Deficits and Nonfocal/Grossly Intact
Psych: Calm
Data Reviewed
-
Total Time Spent with Patient (in minutes): 55
--- NOTE | 2024-06-10 16:52 | CM ---
Alert awake oriented patient who lives alone in a 1 story home with 4 steps to enter.She is independent in driving and in all activities of daily living.Offered VN she declined.
No adaptive devices
Never had VN/HX [facility]
Pharmacy [facility]
PCP Dr Kilgore
PLAN Home no needs
[2024-06-10 18:41] LABS: Hepatitis C Antibody Negative (Negative)
[2024-06-10] MEDS: ZETIA 10 MG PO (21:01)
[2024-06-10] MEDS: TYLENOL 650 MG PO (22:39)
[2024-06-10] MEDS: MELATONIN 5 MG PO (22:40)
[2024-06-11 03:00] VITALS: BP 140/69
[2024-06-11 05:45] LABS: % Basophils 1.4 % (0-2); % Eosinophils 5.4 % (0-6); % Immature Granulocytes 0.7 % (0-0.5); % Lymphocytes 28.6 % (20.5-51.1); % Monocytes 8.1 % (1.7-9.3); % Neutrophils 55.8 % (42.2-75.2); Absolute Basophils 0.1 10^3/uL (0-0.2); Absolute Eosinophils 0.3 10^3/uL (0-0.7); Absolute Lymphocytes 1.6 10^3/uL (1.2-3.4); Absolute Monocytes 0.5 10^3/uL (0.1-0.6); Absolute Neutrophils 3.1 10^3/uL (1.4-6.5); Hematocrit 25.7 % (37.0-47.0); Hemoglobin 8.7 g/dL (12.0-16.0); Mean Corp Hgb Conc. 33.9 g/dL (33.0-37.0); Mean Corpuscular Hgb 29.6 pg (27.0-31.0); Mean Corpuscular Volume 87.4 fL (81.0-99.0); Mean Platelet Volume 9.7 fL (7.4-10.4); Nucleated Red Blood Cells % 0 %; Platelet Count 321 10^3/uL (130-400); Red Blood Cell Count 2.94 10^6/uL (4.20-5.40); Red Cell Dist. Width 13.2 % (11.5-14.5); White Blood Cell Count 5.6 10^3/uL (4.8-10.8)
[2024-06-11 07:23] VITALS: BP 143/83
[2024-06-11] MEDS: FOLVITE 1 MG PO (09:51)
[2024-06-11] MEDS: VITAMIN B1 100 MG PO (09:51)
[2024-06-11] MEDS: NORVASC 10 MG PO (09:51)
[2024-06-11] MEDS: VITAMIN B-12 1000 MCG PO (09:51)
[2024-06-11] MEDS: VITAMIN D3 (cholecalciferol) 125 MCG PO (09:52)
[2024-06-11 11:05] VITALS: BP 141/77
[2024-06-11 11:26] VITALS: BP 126/77; BP 127/81; BP 140/74; PULSE 77; PULSE 84; PULSE 95
--- NOTE | 2024-06-11 11:33 | W.PN.HOSP.TC ---
Today's Communication/Plan
-
dc home
OP pcp and ENT f/u
Assessment / Plan
Assessment / Plan
#Hypertensive urgency
#Headache, prior nosebleed today
-CT head No evidence of acute intracranial abnormality.
-On Norvasc. BP improved 126/77
#Right nares epistaxis likely due to hypertensive urgency
Ongoing x 1 month, 7 episodes past 2 weeks
Clotted blood right naris
-Hold aspirin 81 mg daily-restart in am
-Patient counseled on how to pinch nose and not tip head back son was present during counseling
-Follow-up outpatient with ENT
#Anemia normocytic secondary to R Nares epistaxis
History of 1 month of epistaxis, 7 episodes in the past 2 weeks
Trend cbc
-Continue folic acid and B12 supplement
# incomplete Vasovagal espisode due to epistaxis
-Patient went to fell but was caught by son and did not pass out
-Check orthostatic level-negative.
#Acute leukocytosis of unclear etiology
-UA unremarkable
-No obvious source of infection
-resolved
#JORGE on CKD 3B
Creat 1.2 baseline appears 0.9
-IV NSS 1 L given in ER
-resolved. stop IVF.
#Hyponatremia likely 2/2 hypovolemia
-resolved
#Memory impairment short-term likely due to prior alcohol abuse and family history Alzheimer's
Patient is oriented to name, place, son, president but not recent history or some of medical history
Patient is forgetting to take some of medication at home
Son Jeancarlos made aware family should take over sorting out medications and bottles for patient's
#History of alcohol abuse
Prior 1 bottle of white wine daily 15 to 20 years detoxed at [facility] in October then short inpatient physical rehab stay due to hyponatremia then [facility] rehab for 30 days for alcohol abuse quit January 2024
-Per son did have 1 episode of drinking again in January 2024
-Will check alcohol level as patient lives alone
-Continue vitamin B12 100 mcg p.o. daily, folic acid 1 mg daily, thiamine 100 mg p.o. daily
#CAD s/p cardiac stents 1997
-on aspirin 81 mg daily, continue Zetia 10 mg at bedtime
#Insomnia
-Continue melatonin 6 mg at bedtime
Advised patient to stop trazodone 75 mg at bedtime as she has not been taking it due to running out
#Osteoporosis
Continue alendronate 70 mg p.o. Wednesdays, vitamin D3
#Subclinical hypothyrodism
-repeat TFTs in 4-6 weeks
DVT prophylaxis
SCDs in setting of recent epistaxis
DNR per patient with son Jeancarlos at bedside
More than 30 minutes spent in discharge including
Final examination of the patient
Summarizing hospital stay
Instructions for continuing care to all relevant caregivers
Preparation of discharge records, prescriptions, and referral forms
Total time spent (in minutes): 52
Anticipated Discharge: Today
Subjective/Interval History
-
Date of Service: June 11, 2024
no further episode of epistaxis
Objective Data
-
Labs:
Laboratory Results
06/11/24
05:08
WBC 5.6
Hgb 8.7 L
Hct 25.7 L
Plt Count 321
Vital Signs:
Vital Signs
Temp Pulse Resp BP Pulse Ox
98.6 F 77 16 126/77 99
06/11/24 11:26 06/11/24 11:26 06/11/24 11:26 06/11/24 11:26 06/11/24 11:26
I&O
06/10/24 06/11/24 06/12/24
06:59 06:59 06:59
Intake Total 1200 / 1200 1080 / 1080
Balance 1200 / 1200 1080 / 1080
Physical Exam
-
General: Well Developed and No Apparent Distress
HEENT: Normocephalic, Atraumatic and Moist Mucous Membranes
Respiratory: Clear to Auscultation
Cardiac: Regular Rhythm and S1/S2; Negative Murmur, Rub or Gallop
GI: Soft, Nontender, Nondistended and Normal Bowel Sounds; Negative Organomegaly
Rectal: Deferred by Provider
Musculoskeletal: No Clubbing, No Cyanosis and No Edema
Skin: Negative Rash
Neuro: Awake, No Motor Deficits and Nonfocal/Grossly Intact
Psych: Calm
--- NOTE | 2024-06-11 11:45 | W.DCSUMMARY ---
Discharge Summary
Discharge Data
Date of Admission: 06/09/24
Date of Discharge: 06/11/24
-
Pending Results: No
Hospital Course
73-year-old female past medical history of hypertension, anemia CKD, suspected memory impairment, alcohol abuse, CAD status post stent who was presented with incomplete vasovagal. Patient had multiple episode of epistaxis at home. Patient was also
found to have a hypertensive urgency on admission. Hypertensive urgency was likely contributing to epistaxis. Patient blood pressure medications were adjusted. Lisinopril was discontinued and started on Norvasc. Patient blood pressure
stabilized. Orthostatics were negative. Epistaxis stopped. Patient was tolerating diet. Patient was eval by physical and Occupational Therapy. Patient had mild elevation of creatinine which resolved with IV fluids. Potassium was repleted.
Patient blood pressure was stable. No further epistaxis since admission to the hospital. Patient be discharged home with recommendation to follow-up with outpatient primary doctor and referral to ENT was made.
Discharge Plan
-
Patient Disposition: Home (Routine Discharge)
Discharge Diagnosis/Procedures: Pre-syncope
Hypertensive urgency
Right nares epistaxis likely due to hypertensive urgency
Hypokalemia
Condition: Fair
Diet: Low Cholesterol
Activity: As tolerated
Driving Restrictions: As prior to admission
Blood Work: CBC AND BMP IN 1-2 WEEK VIA PRIMARY DOCTOR
Instructions: Nosebleeds
Referrals:
Vasu Rosado MD [Active] - in less than 1 week (call to make appt for Epistaxis. )
Oksana Kilgore MD [Family Provider] - in less than 1 week
Prescriptions:
New
cyanocobalamin (vitamin B-12) [Vitamin B-12] 1,000 mcg Tablet
1,000 mcg PO DAILY 30 Days Qty: 30 0RF
amlodipine 10 mg Tablet
10 mg PO DAILY 30 Days Qty: 30 0RF
Continued
cyanocobalamin (vitamin B-12) 100 mcg Tablet
100 mcg PO DAILY
trazodone 50 mg Tablet
75 mg PO HS
Patient Comments:
patient says she takes every night, but it was last filled on 12/24/23 for #30 tabs
alendronate 70 mg Tablet
70 mg PO WE
Patient Comments:
not filled at pharmacy and not in physician visit notes from 05/29/24
thiamine HCl (vitamin B1) 100 mg Tablet
100 mg PO DAILY
potassium chloride 10 mEq Tablet Extended Release
10 meq PO DAILY
melatonin 3 mg Tablet
6 mg PO HS
aspirin 81 mg Tablet,Delayed Release (Dr/Ec)
81 mg PO DAILY
folic acid 1 mg Tablet
1 mg PO DAILY
ezetimibe 10 mg Tablet
10 mg PO HS
cholecalciferol (vitamin D3) 125 mcg (5,000 unit) Tablet
125 mcg PO DAILY
loperamide 2 mg Tablet
4 mg PO DAILYPRN PRN (Reason: diarrhea)
Discontinued
lisinopril 30 mg Tablet
30 mg PO DAILY
Discharge Orders:
Discharge Patient (As Directed); Ordered 06/11/24
Ordered By: Anuel Baker
Discharge Date and Time
Print Language: PERSIAN
--- NOTE | 2024-06-11 13:39 | CM ---
MD entered order for discharge.
Spoke with pt she said she was ready for discharge.
She said sister Violette will drive her home.
Offered V she declined need.PT said no skilled needs .
PLAN Home no needs
== END 2024-06-11 14:51 | disposition home or self-care (01) | DRG 305 ==
LOC: 3 WEST ACU 20:06
PROVIDERS: Clinical Nurse Specialist Family Health; Nurse Practitioner; ADMITTING PHYSICIAN Hospitalist; ATTENDING PHYSICIAN Hospitalist; EMERGENCY PHYSICIAN Emergency Medicine; FAMILY PHYSICIAN Family Medicine
DX: I16.0 Hypertensive urgency (principal); N17.9 Acute kidney failure, unspecified; E87.1 Hypo-osmolality and hyponatremia; D62 Acute posthemorrhagic anemia; R04.0 Epistaxis; Z79.82 Long term (current) use of aspirin; I12.9 Hypertensive chronic kidney disease with stage 1 through stage 4 chronic kidney disease, or unspecified chronic kidney disease; N18.32 Chronic kidney disease, stage 3b; E86.1 Hypovolemia; G30.9 Alzheimer's disease, unspecified; F02.80 Dementia in other diseases classified elsewhere, unspecified severity, without behavioral disturbance, psychotic disturbance, mood disturbance, and anxiety; F10.11 Alcohol abuse, in remission; I25.10 Atherosclerotic heart disease of native coronary artery without angina pectoris; Z95.5 Presence of coronary angioplasty implant and graft; M81.0 Age-related osteoporosis without current pathological fracture; G47.00 Insomnia, unspecified; Z66 Do not resuscitate
CPT/HCPCS: 70450; 80053; 81003; 81015; 82077; 82607; 82728; 82746; 83540; 83550; 83930; 83935; 84300; 84439; 84443; 84484; 85025; 86803; 93005; 96360; 97162; 99285

== ENCOUNTER → 2024-06-18 15:34 | Outpatient (REF) | payer MEDICARE, OTHER, SELFPAY | LOC: WDC 15:34 | PROVIDERS: ATTENDING PHYSICIAN Family Medicine | DX: Z12.31 Encounter for screening mammogram for malignant neoplasm of breast (principal) | CPT/HCPCS: 77063; 77067 ==

== ENCOUNTER → 2024-07-02 15:58 | Outpatient (REF) | payer MEDICARE, OTHER, SELFPAY | LOC: RAD 15:58 | PROVIDERS: ATTENDING PHYSICIAN Nurse Practitioner Adult Health; FAMILY PHYSICIAN Family Medicine | DX: R60.0 Localized edema (principal) | CPT/HCPCS: 93971 ==

== ENCOUNTER → 2024-07-15 09:27 | Outpatient (REF) | payer MEDICARE, OTHER, SELFPAY | LOC: RAD 09:27 | PROVIDERS: ATTENDING PHYSICIAN Family Medicine | DX: Z78.0 Asymptomatic menopausal state (principal) | CPT/HCPCS: 77080 ==

== ENCOUNTER → 2024-07-17 08:24 | Outpatient (REF) | payer MEDICARE, OTHER, SELFPAY ==
[2024-07-17 09:21] LABS: % Basophils 1.1 % (0-2); % Eosinophils 2.7 % (0-6); % Immature Granulocytes 0.5 % (0-0.5); % Lymphocytes 17.5 % (20.5-51.1); % Monocytes 6.9 % (1.7-9.3); % Neutrophils 71.3 % (42.2-75.2); Absolute Basophils 0.1 10^3/uL (0-0.2); Absolute Eosinophils 0.2 10^3/uL (0-0.7); Absolute Lymphocytes 1.5 10^3/uL (1.2-3.4); Absolute Monocytes 0.6 10^3/uL (0.1-0.6); Mean Corp Hgb Conc. 34.3 g/dL (33.0-37.0); Mean Corpuscular Hgb 29.6 pg (27.0-31.0); Mean Corpuscular Volume 86.4 fL (81.0-99.0); Mean Platelet Volume 9.3 fL (7.4-10.4); Nucleated Red Blood Cells % 0 %; Platelet Count 414 10^3/uL (130-400); Red Blood Cell Count 4.05 10^6/uL (4.20-5.40); Red Cell Dist. Width 12.6 % (11.5-14.5); White Blood Cell Count 8.4 10^3/uL (4.8-10.8)
[2024-07-17 09:23] LABS: Urine Albumin 2+ (Neg - Trace); Urine Bilirubin Negative (Negative); Urine Character Clear (Clear); Urine Color Yellow; Urine Glucose Negative (Negative); Urine Ketone Negative (Negative); Urine Leukocyte Negative (Negative); Urine Nitrite Negative (Negative); Urine Occult Blood 3+ (Negative); Urine Urobilinogen Negative (Neg - 1+)
[2024-07-17 09:44] LABS: Urine Bacteria Few (Negative); Urine Mucus Many; Urine White Cell 0-2 /HPF (0-5)
[2024-07-17 09:55] LABS: ALT (SGPT) 18 U/L (0-35); AST (SGOT) 21 U/L (14-36); Albumin 4.5 g/dl (3.5-5.0); Alkaline Phosphatase 55 U/L (38-126); Blood Urea Nitrogen 13 mg/dl (7-17); Calcium 9.5 mg/dl (8.4-10.2); Carbon Dioxide 32 mmol/L (22-30); Chloride 98 mmol/L (98-107); Glucose 104 mg/dl (70-99); Iron 82 ug/dl (37-170); Potassium 3.6 mmol/L (3.5-5.1); Sodium 139 mmol/L (135-145); Total Bilirubin 0.7 mg/dl (0.2-1.3); Total Protein 6.8 g/dl (6.3-8.2); eGFR 52.73
[2024-07-17 10:05] LABS: Percent Saturation 27 % (20-50); Total Iron Binding Capacity 293 ug/dl (265-497)
[2024-07-17 10:18] LABS: Free T4 1.54 ng/dl (0.78-2.19)
[2024-07-17 10:30] LABS: Ferritin 45.7 ng/ml (11.1-264.0)
[2024-07-17 10:32] LABS: TSH 4.05 uIU/ml (0.47-4.68)
[2024-07-18 20:40] LABS: Total T3 (Sendout) 124 ng/dL (80-200)
== END ==
LOC: REG 08:24
PROVIDERS: ATTENDING PHYSICIAN Family Medicine
DX: R04.0 Epistaxis (principal); D64.9 Anemia, unspecified; R31.29 Other microscopic hematuria; E87.1 Hypo-osmolality and hyponatremia; E03.8 Other specified hypothyroidism; I10 Essential (primary) hypertension
CPT/HCPCS: 36415; 80053; 81003; 81015; 82728; 83540; 83550; 84439; 84443; 84480; 85025

== ENCOUNTER → 2024-08-27 08:19 | Outpatient (REF) | payer MEDICARE, OTHER, SELFPAY ==
[2024-08-27 10:02] LABS: Microalbumin/creatinine Ratio 69.2 mg/g
[2024-08-27 10:28] LABS: Blood Urea Nitrogen 14 mg/dl (7-17); Calcium 9.7 mg/dl (8.4-10.2); Carbon Dioxide 34 mmol/L (22-30); Chloride 99 mmol/L (98-107); Glucose 111 mg/dl (70-99); Potassium 3.7 mmol/L (3.5-5.1); Sodium 138 mmol/L (135-145); eGFR 52.73
== END ==
LOC: REG 08:19
PROVIDERS: ATTENDING PHYSICIAN Family Medicine
DX: I12.9 Hypertensive chronic kidney disease with stage 1 through stage 4 chronic kidney disease, or unspecified chronic kidney disease (principal); N18.31 Chronic kidney disease, stage 3a
CPT/HCPCS: 36415; 80048; 82043; 82570

== ENCOUNTER → 2024-10-17 08:31 | Outpatient (REF) | payer MEDICARE, OTHER, SELFPAY ==
[2024-10-17 09:58] LABS: Hematocrit 34.6 % (37.0-47.0); Hemoglobin 11.5 g/dL (12.0-16.0); Mean Corp Hgb Conc. 33.2 g/dL (33.0-37.0); Mean Corpuscular Volume 85.6 fL (81.0-99.0); Nucleated Red Blood Cells % 0 %; Platelet Count 403 10^3/uL (130-400); Red Cell Dist. Width 13.6 % (11.5-14.5)
[2024-10-17 10:35] LABS: ALT (SGPT) 14 U/L (0-35); AST (SGOT) 19 U/L (14-36); Albumin 4.3 g/dl (3.5-5.0); Alkaline Phosphatase 56 U/L (38-126); Blood Urea Nitrogen 12 mg/dl (7-17); Calcium 8.9 mg/dl (8.4-10.2); Carbon Dioxide 33 mmol/L (22-30); Chloride 98 mmol/L (98-107); Glucose 104 mg/dl (70-99); HDL Cholesterol 96 mg/dl; LDL Cholesterol, Calculated 149 mg/dl; Potassium 3.1 mmol/L (3.5-5.1); Sodium 138 mmol/L (135-145); Total Protein 6.6 g/dl (6.3-8.2); Very Low Density Lipoprotein 14 mg/dl (0-30); eGFR 59.12
== END ==
LOC: REG 08:31
PROVIDERS: ATTENDING PHYSICIAN Family Medicine
DX: I12.9 Hypertensive chronic kidney disease with stage 1 through stage 4 chronic kidney disease, or unspecified chronic kidney disease (principal); N18.31 Chronic kidney disease, stage 3a; E78.00 Pure hypercholesterolemia, unspecified; E03.8 Other specified hypothyroidism
CPT/HCPCS: 36415; 80053; 80061; 84443; 85025